=== PATIENT | female | born 1985 ===

== ENCOUNTER 2016-11-04 18:15 | Emergency (ER) | payer OTHER ==
[2016-11-04 18:22] VITALS: BMI 21.6
[2016-11-04 18:25] VITALS: BP 128/89; RESP 18; O2SAT 99
--- NOTE | 2016-11-04 19:11 | ED PDOC ---
Arrival/HPI - General Chief Complaint: Abdominal Pain Time Seen by Provider: 11/04/16 18:26 Historian: Patient - History of Present Illness Narrative History of Present Illness (Text): 11/04/16 19:13 A 31 year old female, whose past medical history includes left renal cyst and ovarian cyst, presents to the emergency department complaining of chronic discomfort of lower abdomen area radiating to back. Patient states she has been having these symptoms for the past few weeks. Patient reports she had a renal ultrasound done, which was benign and her senior backup administrator cleared her of any pelvic problems. Patient notes to occasional nausea and urinary frequency but denies any vomiting, diarrhea, fever, chills or any other complaints at this time. 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 - Renal Hx Renal Disorder: No Other/Comment: Hx of 1 cyst in the L kidney - Endocrine/Metabolic Hx Endocrine Disorders: No - Hematological/Oncological Hx Blood Disorders: Yes Hx Anemia: Yes - Integumentary Hx Dermatological Disorder: No - Musculoskeletal/Rheumatological Hx Musculoskeletal Disorders: Yes Hx Falls: No Other/Comment: BACKPAIN - Gastrointestinal Hx Gastrointestinal Disorders: Yes Hx Constipation: Yes Hx Gastritis: Yes - Genitourinary/Gynecological Hx Genitourinary Disorders: Yes Other/Comment: ovarian cyst - Psychiatric Hx Psychophysiologic Disorder: No Hx Substance Use: No - Surgical History Other/Comment: EYE SURGERY WHEN SHE WAS A BABY - Anesthesia Hx Anesthesia: Yes Hx Anesthesia Reactions: No Hx Malignant Hyperthermia: No - Suicidal Assessment Feels Threatened In Home Enviroment: No Family/Social History - Physician Review Nursing Documentation Reviewed: Yes Family/Social History: No Known Family HX Smoking Status: Never Smoked Hx Alcohol Use: Yes (Socially) Frequency of alcohol use: Socially Hx Substance Use: No Allergies/Home Meds Allergies/Adverse Reactions: Allergies No Known Allergies Allergy (Verified 08/07/16 17:34) Home Medications: Home Meds Medication Instructions Recorded Confirmed No Known Home Med 08/07/16 11/04/16 Review of Systems - Physician Review All systems were reviewed & negative as marked: Yes - Review of Systems Constitutional: absent: Fevers, Other (chills) Gastrointestinal: Abdominal Pain, Nausea. absent: Diarrhea, Vomiting Genitourinary Female: Other (urinary frequency) Musculoskeletal: Back Pain Physical Exam Vital Signs Reviewed: Yes Vital Signs Temp Pulse Resp BP Pulse Ox 11/04/16 18:24 98.1 F 77 18 128/89 99 Temperature: Afebrile Blood Pressure: Normal Pulse: Regular Respiratory Rate: Normal Appearance: Positive for: Well-Appearing, Non-Toxic, Comfortable Pain Distress: None Mental Status: Positive for: Alert and Oriented X 3 - Systems Exam Head: Present: Atraumatic, Normocephalic Pupils: Present: PERRL Extroacular Muscles: Present: EOMI Conjunctiva: Present: Normal Mouth: Present: Moist Mucous Membranes Neck: Present: Normal Range of Motion Respiratory/Chest: Present: Clear to Auscultation, Good Air Exchange. No: Respiratory Distress, Accessory Muscle Use Cardiovascular: Present: Regular Rate and Rhythm, Normal S1, S2. No: Murmurs Abdomen: Present: Normal Bowel Sounds. No: Tenderness, Distention, Peritoneal Signs Back: Present: Normal Inspection. No: CVA Tenderness, Paraspinal Tenderness Upper Extremity: Present: Normal Inspection. No: Cyanosis, Edema Lower Extremity: Present: Normal Inspection. No: Edema Neurological: Present: GCS=15, CN II-XII Intact, Speech Normal Skin: Present: Warm, Dry, Normal Color. No: Rashes Psychiatric: Present: Alert, Oriented x 3, Normal Insight, Normal Concentration Medical Decision Making ED Course and Treatment: 11/04/16 19:06 Impression: A 31 year old female with chronic discomfort of lower abdomen radiating to back. Plan: -- US transvaginal -- labs -- Urinalysis -- IV fluids -- Reassess and disposition Prior Visits: Notes and results from previous visits were reviewed. Patient last reported to the emergency department on 08/07/16 for evaluation of chest pain. Patient was hospitalized. Progress Notes: Reviewed radiology, CT Abdomen and Pelvis shows: No acute findings. 11/04/16 23:24 US Transvaginal shows: Both ovaries demonstrate normal waveforms without evidence for torsion. 11/05/16 00:00 On reevaluation the patient feels better and is in no acute distress. I have discussed the results and plan with the patient, who expresses understanding. Patient given the opportunity to ask question, all questions were answered and there is agreement with the plan to discharge the patient home. Patient is stable for discharge. Patient was instructed to follow up with physician/clinic in 1-2 days or return if symptoms persist/worsen or new concerning symptoms arise. - Lab Interpretations Lab Results: 11/04/16 20:15 11/04/16 20:15 Lab Results 11/04/16 20:15: WBC 9.5 D, RBC 4.70, Hgb 12.2, Hct 37.2, MCV 79.1 L, MCH 26.0, MCHC 32.8, RDW 16.8 H, Plt Count 179 11/04/16 20:15: Sodium 138, Potassium 3.9, Chloride 103, Carbon Dioxide 24, Anion Gap 15, BUN 14, Creatinine 0.8, Est GFR ( Amer) > 60, Est GFR (Non- Af Amer) > 60, Random Glucose 98, Calcium 9.2, Total Bilirubin 0.3, AST 20, ALT 23, Alkaline Phosphatase 67, Total Protein 8.1, Albumin 4.7, Globulin 3.5, Albumin/Globulin Ratio 1.3, Lipase 75 11/04/16 20:15: Urine Color Yellow, Urine Appearance Clear, Urine pH 7.0, Ur Specific [place] 1.020, Urine Protein Negative, Urine Glucose (UA) Negative, Urine Ketones Trace H, Urine Blood Negative, Urine Nitrate Negative, Urine Bilirubin Negative, Urine Urobilinogen 0.2, Ur Leukocyte Esterase Negative, Urine HCG, Qual Negative I have reviewed the lab results: Yes - RAD Interpretation Narrative RAD Interpretations (Text): CT Abdomen and Pelvis shows: Lower thorax: The visualized portions of the lung bases are normal. ABDOMEN: Liver: There are no focal liver lesions present. Gallbladder and bile ducts: The gallbladder is contracted but otherwise normal. No calcified stones. No ductal dilation. Pancreas: The pancreas is normal. No ductal dilation. Spleen: The spleen is normal. Adrenals: The adrenal glands are normal. Kidneys and ureters: 2.4 CM cyst at the midpole the left kidney. There is no evidence of hydronephrosis. Stomach and bowel: The stomach is normal. Colonic constipation is present. There is no evidence of intestinal obstruction. No mucosal thickening. Appendix: No findings to suggest acute appendicitis. PELVIS: Bladder: The bladder is normal. No stones. Reproductive: The uterus is normal. ABDOMEN and PELVIS: Intraperitoneal space: There is trace pelvic ascites, nonspecific. There is no free intraperitoneal air. Bones/joints: No acute fracture. No dislocation. Soft tissues: Unremarkable. Vasculature: The aorta is normal. No abdominal aortic aneurysm. Lymph nodes: There is no evidence of lymphadenopathy. IMPRESSION: No acute findings. US Transvaginal shows: Uterus/cervix: Uterus measures 8.6 x 6.1 x 5.4 CM. Endometrial stripe measures 1.1 CM. No myometrial mass. Right ovary: Right ovary measures 3.5 x 3.4 x 2.2 CM. Right ovary demonstrates normal waveforms. Normal blood flow. Left ovary: Left ovary measures 2.0 x 1.4 x 1.7 CM. Left ovary contains a complex cyst measuring 1.4 CM in greatest dimension. Left ovary demonstrates normal waveforms. Normal blood flow. Free fluid: No free fluid. Bladder: Empty bladder which cannot be evaluated with this probe. IMPRESSION: Both ovaries demonstrate normal waveforms without evidence for torsion. Radiology Orders: 11/04/16 18:43 TRANSVAGINAL [US] Stat 11/04/16 22:08 ABD & PELVIS W/O PO OR IV CONT [CT] Stat Insurance Follow Up Rep: Radiologist - Medication Orders Current Medication Orders: Sodium Chloride (Sodium Chloride 0.9%) 1,000 mls @ 100 mls/hr IV .Q10H MARY ANN Last Admin: 11/04/16 20:14 Dose: 100 mls/hr - Scribe Statement The provider has reviewed the documentation as recorded by the Dylan Valera Provider Scribe Attestation: All medical record entries made by the Sureshibladan were at my direction and personally dictated by me. I have reviewed the chart and agree that the record accurately reflects my personal performance of the history, physical exam, medical decision making, and the department course for this patient. I have also personally directed, reviewed, and agree with the discharge instructions and disposition. Disposition/Present on Arrival - Present on Arrival Any Indicators Present on Arrival: No History of DVT/PE: No History of Uncontrolled Diabetes: No Urinary Catheter: No History of Decub. Ulcer: No History Surgical Site Infection Following: None - Disposition Have Diagnosis and Disposition been Completed?: Yes Diagnosis: Abdominal pain Disposition: HOME/ ROUTINE Disposition Time: 00:01 Patient Plan: Discharge Patient Problems: Current Active Problems Problem Status Onset Abdominal pain Acute Condition: GOOD Discharge Instructions (ExitCare): Abdominal Pain (ED) Additional Instructions: Rest/no strenuous physical activity/follow up with your doctor this week Referrals: Tien Rodgers MD [Primary Care Provider] - Follow up with primary
[2016-11-04] MEDS: Sodium Chloride 0.9% 1,000 ML IV SCH (20:14)
[2016-11-04 20:37] LABS: URINE BILIRUBIN NEGATIVE (NEGATIVE); URINE BLOOD NEGATIVE (NEGATIVE); URINE GLUCOSE (UA) NEGATIVE (NEGATIVE); URINE LEUKOCYTE ESTERASE NEGATIVE Leu/uL (NEGATIVE); URINE NITRATE NEGATIVE (NEGATIVE); URINE PROTEIN NEGATIVE mg/dL (<30 mg/dL); URINE UROBILINOGEN 0.2 E.U./dL (<1 E.U./dL)
[2016-11-04 20:39] LABS: ALB/GLOB RATIO 1.3 (1.1-1.8); ALBUMIN 4.7 g/dL (3.0-4.8); ALT/SGPT 23 U/L (7-56); AST/SGOT 20 U/L (15-39); BLOOD UREA NITROGEN 14 mg/dL (7-21); CALCIUM 9.2 mg/dL (8.4-10.5); GFR AFRICAN-AMERICAN > 60; GFR NON-AFRICAN AMERICAN > 60; LIPASE 75 U/L (23-300)
[2016-11-04 20:40] LABS: URINE APPEARANCE CLEAR (CLEAR); URINE COLOR YELLOW (YELLOW)
[2016-11-04 20:41] LABS: HEMOGLOBIN 12.2 gm/dL (12.0-16.0); MEAN CELL VOLUME 79.1 fL (80.0-105.0); MEAN CORPUSCULAR HGB CONC 32.8 g/dl (31.0-37.0); PLATELET COUNT 179 10^3/uL (120.0-450.0); RED CELL DISTRIBUTION WIDTH 16.8 % (11.5-14.5); WHITE BLOOD COUNT 9.5 10^3/ul (4.5-11.0)
[2016-11-04 20:43] LABS: HCG,QUALITATIVE URINE NEGATIVE (NEGATIVE)
--- NOTE | 2016-11-04 22:52 | CT ---
EXAM: CT Abdomen and Pelvis Without Intravenous Contrast CLINICAL HISTORY: 31 years old, female; Pain; Abdominal pain; Localized; Lower; Additional info: Lower abdominal pain TECHNIQUE: Axial computed tomography images of the abdomen and pelvis without intravenous contrast. This CT exam was performed using one or more of the following dose reduction techniques: automated exposure control, adjustment of the mA and/or kV according to patient size, and/or use of iterative reconstruction technique. Coronal and sagittal reformatted images were created and reviewed. COMPARISON: US - RENAL 10/26/2016 10:07:46 AM FINDINGS: Lower thorax: The visualized portions of the lung bases are normal. ABDOMEN: Liver: There are no focal liver lesions present. Gallbladder and bile ducts: The gallbladder is contracted but otherwise normal. No calcified stones. No ductal dilation. Pancreas: The pancreas is normal. No ductal dilation. Spleen: The spleen is normal. Adrenals: The adrenal glands are normal. Kidneys and ureters: 2.4 CM cyst at the midpole the left kidney. There is no evidence of hydronephrosis. Stomach and bowel: The stomach is normal. Colonic constipation is present. There is no evidence of intestinal obstruction. No mucosal thickening. Appendix: No findings to suggest acute appendicitis. PELVIS: Bladder: The bladder is normal. No stones. Reproductive: The uterus is normal. ABDOMEN and PELVIS: Intraperitoneal space: There is trace pelvic ascites, nonspecific. There is no free intraperitoneal air. Bones/joints: No acute fracture. No dislocation. Soft tissues: Unremarkable. Vasculature: The aorta is normal. No abdominal aortic aneurysm. Lymph nodes: There is no evidence of lymphadenopathy. IMPRESSION: No acute findings.
--- NOTE | 2016-11-04 23:22 | US ---
EXAM: US Pelvis, Transvaginal CLINICAL HISTORY: 31 years old, female; Pain; Pelvic pain TECHNIQUE: Real-time transvaginal pelvic ultrasound (complete) with image documentation. Transvaginal imaging was used for better evaluation of the endometrium and adnexa. COMPARISON: No relevant prior studies available. FINDINGS: Uterus/cervix: Uterus measures 8.6 x 6.1 x 5.4 CM. Endometrial stripe measures 1.1 CM. No myometrial mass. Right ovary: Right ovary measures 3.5 x 3.4 x 2.2 CM. Right ovary demonstrates normal waveforms. Normal blood flow. Left ovary: Left ovary measures 2.0 x 1.4 x 1.7 CM. Left ovary contains a complex cyst measuring 1.4 CM in greatest dimension. Left ovary demonstrates normal waveforms. Normal blood flow. Free fluid: No free fluid. Bladder: Empty bladder which cannot be evaluated with this probe. IMPRESSION: Both ovaries demonstrate normal waveforms without evidence for torsion.
[2016-11-05] MEDS: Sodium Chloride 0.9% 1,000 ML IV SCH (00:14)
[2016-11-05 00:17] VITALS: PULSE 72; TEMP 98
== END 2016-11-05 00:17 | disposition home or self-care (01) ==
LOC: ED 18:15
DX: R10.9 Unspecified abdominal pain (principal); N28.1 Cyst of kidney, acquired
CPT/HCPCS: 74176; 76830; 80053; 81003; 83690; 84703; 85027; 96360; 96361; 99284; J7040